=== PATIENT | female | born 1960 | race Caucasian/White ===

== ENCOUNTER 2017-06-22 21:58 | Inpatient (IN) | payer BC ==
[~2017-06-22] VITALS: Ht 165.1 cm; Wt 95.7 kg
[~2017-06-22 21:58] MED LIST: CALCIUM 600 +1 EAC4 PO; COLACE100 MG PO; DIABETA2.5 MG PO; ESTRACE0.5 MG PO; FLONASE SENSIM9.9 ML BOTH NARES; GLUCOPHAGE1000 MG PO; HUMIRA40 MG/0.8 SC; NORCO 5/3251 TABLET PO; PROTONIX40 MG PO; PROVENTIL HFA6.7 GM IH; TOPROL XL50 MG PO; VENLAFAXINE HC150 MG PO; VITAMIN D2000 UNI1 PO; VOLTAREN 1% GE100 GM; ZESTRIL40 MG PO; ZOCOR40 MG PO; ZYRTEC10 M3 PO
[2017-06-23 09:23] VITALS: BP 129/71
[2017-06-23 10:18] LABS: POINT-OF-CARE METER ID UU14174212
[2017-06-23 14:53] LABS: POINT-OF-CARE METER ID UU13113675; POINT-OF-CARE USER ID 515036437
[2017-06-23] MEDS ORDERED: VENLAFAXINE HCL75 M3 PO (15:45)
[2017-06-23 17:22] VITALS: BP 122/69
[2017-06-23 18:10] LABS: POINT-OF-CARE METER ID UU14188577
[2017-06-23 20:17] VITALS: BP 118/56
[2017-06-23 23:18] VITALS: BP 102/59
[2017-06-24 04:56] VITALS: BP 100/58
[2017-06-24 08:13] VITALS: BP 104/61
[2017-06-24 10:38] LABS: POINT-OF-CARE METER ID UU14188577
[2017-06-24 12:04] VITALS: BP 119/68
[2017-06-24 15:56] VITALS: BP 107/57
[2017-06-25 08:03] VITALS: BP 116/64
[2017-06-25] MEDS ORDERED: CYCLOBENZAPRINE10 MG PO (10:27)
[2017-06-25] MEDS ORDERED: NORCO 7.5/321 TABLET PO (10:30)
== END 2017-06-25 12:35 | disposition home or self-care (01) | DRG 460 ==
LOC: ENRESERV 21:58 → 2SOUTH 06-23 08:32 → ENRESERV 06-23 14:48 → 3EAST 06-23 17:14
PROVIDERS: Neurological Surgery
DX: M43.16 Spondylolisthesis, lumbar region (principal); M48.061 Spinal stenosis, lumbar region without neurogenic claudication; M45.9 Ankylosing spondylitis of unspecified sites in spine; I10 Essential (primary) hypertension; E78.00 Pure hypercholesterolemia, unspecified; E11.9 Type 2 diabetes mellitus without complications; J45.909 Unspecified asthma, uncomplicated; F32.9 Major depressive disorder, single episode, unspecified; E66.9 Obesity, unspecified; Z68.35 Body mass index [BMI] 35.0-35.9, adult; Z79.84 Long term (current) use of oral hypoglycemic drugs; Z86.14 Personal history of Methicillin resistant Staphylococcus aureus infection
CPT/HCPCS: 72100; 76000; 82948; 86850; 86900; 86901; 87641; 90686; 94799; 95886; 95938; 99202; J0131; J0330; J0690; J1100; J1580; J1885; J2250; J2270; J2405; J3010; J3370; J3480